=== PATIENT | male | born 1990 | race Caucasian/White ===

== ENCOUNTER 2018-06-25 19:00 | Emergency (ER) | payer BC, OTHER ==
[~2018-06-25] VITALS: Ht 182.9 cm; Wt 68.0 kg
[2018-06-25 19:06] VITALS: BP 132/84
[2018-06-25] MEDS ORDERED: DIAZEPAM 5 MG TABLET ONE (20:27)
[2018-06-25] MEDS ORDERED: KETOROLAC 30 MG/1 ML ONE (20:27)
[2018-06-25] MEDS ORDERED: DIAZEPAM 5 MG TABLET PO ONE (20:30)
[2018-06-25] MEDS ORDERED: KETOROLAC 30 MG/1 ML IM ONE (20:30)
[2018-06-25] MEDS ORDERED: PLEASE ENTER WEIGHT MC SCH (21:00)
== END 2018-06-25 21:07 | disposition home or self-care (01) ==
LOC: ED 21:01
DX: S39.012A Strain of muscle, fascia and tendon of lower back, initial encounter (principal); S50.812A Abrasion of left forearm, initial encounter; S50.811A Abrasion of right forearm, initial encounter; V43.51XA Car driver injured in collision with sport utility vehicle in traffic accident, initial encounter; Y93.89 Activity, other specified; Y92.89 Other specified places as the place of occurrence of the external cause; Y99.8 Other external cause status
CPT/HCPCS: 72110; 96372; 99283; J1885

== ENCOUNTER 2020-02-10 07:00 | Emergency (ER) | payer BC, OTHER ==
[~2020-02-10] VITALS: Ht 182.9 cm; Wt 70.5 kg
--- NOTE | 2020-02-10 07:18 | NUR ---
PT PRESENTS TO ED WITH N/V AND ABDOMINAL PAIN DURING VOMITING. NONTENDER ON PALPATION. PT REPORTS ETOH MONDAY NIGHT AND AWOKE MONDAY AM WITH VOMITING. PT DENIES OTHER MEDICAL HX. STATES UNABLE TO "KEEP ANYTHING DOWN". MOTHER AT BEDSIDE. VSS. ERPA IN TO ASSESS PT.
[2020-02-10] MEDS ORDERED: SODIUM CHLORIDE FLUSH 10ML SYR IVF ONE (07:30)
[2020-02-10] MEDS ORDERED: FAMOTIDINE 20 MG/2 ML IV ONE (07:30)
[2020-02-10] MEDS ORDERED: SODIUM CHLORIDE 0.9% 1,000ML IVBOLUS ONE (07:30)
[2020-02-10] MEDS ORDERED: ONDANSETRON 2MG/ML, 2ML IVPush ONE (07:30)
[2020-02-10] MEDS ORDERED: FAMOTIDINE 20 MG/2 ML ONE (07:31)
[2020-02-10] MEDS ORDERED: ONDANSETRON 2MG/ML, 2ML ONE (07:31)
--- NOTE | 2020-02-10 07:38 | NUR ---
IV STARTED, IVF INFUSING PER EMAR. MEDS ADMINISTERED. PT SITTING UP, USING EMESIS BAG. GIVEN FRESH ONE. DENIES FURTHER NEEDS AT THIS TIME. AWAITING RELIEF FROM MEDICATION.
[2020-02-10 08:03] LABS: BASOPHILS % (AUTO) 0 % (0-1); EOSINOPHILS % (AUTO) 0 % (1-7); LYMPHOCYTES % (AUTO) 7 % (22-44); MEAN CORPUSCULAR HEMOGLOBIN 30.7 pg (27.5-34.5); MEAN CORPUSCULAR HGB CONC 34.2 g/dL (33.2-36.2); MEAN PLATELET VOLUME 8.8 fL (7.4-10.4); MONOCYTES % (AUTO) 6 % (2-9); NEUTROPHILS % (AUTO) 86 % (42-75); PLATELET COUNT 278 x10^3/uL (130-400); RED CELL DISTRIBUTION WIDTH 13.8 % (9.4-14.8)
[2020-02-10 08:14] LABS: CHLORIDE 100 mmol/L (98-107)
--- NOTE | 2020-02-10 08:15 | NUR ---
DISCUSSION WITH DOLORES BREAUX REGARDING PT'S CONTINUED DRY HEAVING. AWAITING FURTHER ORDERS.
[2020-02-10 08:24] LABS: ALANINE AMINOTRANSFERASE 17 U/L (12-78); ALBUMIN 5.3 g/dL (3.4-5.0); ALKALINE PHOSPHATASE 64 U/L (45-117); ANION GAP 12 mmol/L (5-15); BILIRUBIN,TOTAL 1.7 mg/dL (0.2-1.0); CALCIUM 10.4 mg/dL (8.5-10.1); TOTAL PROTEIN 9.2 g/dL (6.4-8.2)
[2020-02-10] MEDS ORDERED: HALOPERIDOL 5 MG/ML IV ONE (08:30)
[2020-02-10] MEDS ORDERED: HALOPERIDOL 5 MG/ML ONE (08:32)
--- NOTE | 2020-02-10 08:39 | NUR ---
CALL TO PHARMACY REGARDING MEDICATION SCANNING ABILITY. AWAITING FURTHER INSTRUCTIONS.
--- NOTE | 2020-02-10 09:39 | NUR ---
PT GIVEN FLUIDS FOR PO CHALLENGE. PT REPORTS RELIEF FROM N/V FOLLOWING IV MED ADMINISTRATION. NAD NOTED AT THIS TIME.
[2020-02-10 09:56] LABS: MD SCAN
[2020-02-10 10:40] VITALS: BP 113/67
== END 2020-02-10 10:42 | disposition home or self-care (01) ==
LOC: ED 07:52
DX: K52.9 Noninfective gastroenteritis and colitis, unspecified (principal)
CPT/HCPCS: 36415; 80053; 83690; 85025; 96361; 96374; 96375; 99285; J1630; J2405; J7030; 99284

== ENCOUNTER 2020-07-05 06:45 | Emergency (ER) | payer OTHER ==
[~2020-07-05] VITALS: Ht 182.9 cm; Wt 77.7 kg
--- NOTE | 2020-07-05 07:10 | NUR ---
ULTRASOUND AT BEDSIDE.
[2020-07-05] MEDS ORDERED: ONDANSETRON 2MG/ML, 2ML IVPush ONE (07:30)
[2020-07-05] MEDS ORDERED: HALOPERIDOL 5 MG/ML IV ONE (07:30)
[2020-07-05] MEDS ORDERED: SODIUM CHLORIDE 0.9% 1,000ML IVBOLUS ONE (07:30)
[2020-07-05] MEDS ORDERED: FAMOTIDINE 20 MG/2 ML IVPush ONE (07:30)
[2020-07-05 07:46] LABS: BASOPHILS % (AUTO) 0 % (0-1); EOSINOPHILS % (AUTO) 0 % (1-7); LYMPHOCYTES % (AUTO) 10 % (22-44); MEAN CORPUSCULAR HEMOGLOBIN 30.4 pg (27.5-34.5); MEAN CORPUSCULAR HGB CONC 33.5 g/dL (33.2-36.2); MEAN PLATELET VOLUME 8.5 fL (7.4-10.4); MONOCYTES % (AUTO) 4 % (2-9); NEUTROPHILS % (AUTO) 86 % (42-75); PLATELET COUNT 224 x10^3/uL (130-400); RED BLOOD COUNT 4.96 x10^6/uL (4.38-5.82); RED CELL DISTRIBUTION WIDTH 13.8 % (9.4-14.8)
[2020-07-05 07:48] LABS: MD NO
[2020-07-05 07:49] LABS: ALANINE AMINOTRANSFERASE 19 U/L (12-78); ALBUMIN 4.7 g/dL (3.4-5.0); ANION GAP 8 mmol/L (5-15); CALCIUM 9.7 mg/dL (8.5-10.1); CHLORIDE 107 mmol/L (98-107)
[2020-07-05 07:51] LABS: ALKALINE PHOSPHATASE 54 U/L (45-117); TOTAL PROTEIN 7.8 g/dL (6.4-8.2)
--- NOTE | 2020-07-05 08:15 | NUR ---
task RN: assumed care of pt on behalf of primary RN for IV start only. IV initiated per order and fluid bouls started. pt resting in position of comfort. no vomiting at this time
[2020-07-05] MEDS ORDERED: ONDANSETRON 2MG/ML, 2ML ONE (08:23)
[2020-07-05] MEDS ORDERED: FAMOTIDINE 20 MG/2 ML ONE (08:23)
[2020-07-05] MEDS ORDERED: HALOPERIDOL 5 MG/ML ONE (08:23)
--- NOTE | 2020-07-05 08:36 | NUR ---
PT STATES HE STARTED VOMITING LAST NIGHT WITH ABDOMINIAL PAIN AFTER HAVING THREE SHOTS. STATES HE HAS VOMITED 30 TIMES. PT HAS VOMITED ONCE SINCE ARRIVAL. PT MEDICATED NOTED ON MAR PER ORDERS AND FLUIDS INFUSING
[2020-07-05] MEDS ORDERED: MAALOX/HYOSCYAMINE/LIDOCAINE 45 ML BTL PO ONE (09:00)
[2020-07-05] MEDS ORDERED: MAALOX/HYOSCYAMINE/LIDOCAINE 45 ML BTL ONE (09:36)
[2020-07-05 09:38] VITALS: BP 123/63
--- NOTE | 2020-07-05 10:08 | NUR ---
IMPROVEMENT IN PAIN SINCE MEDICATED. TO BE DISCHARGED.
== END 2020-07-05 10:12 | disposition home or self-care (01) ==
LOC: ED 07:11
DX: K29.20 Alcoholic gastritis without bleeding (principal); K85.20 Alcohol induced acute pancreatitis without necrosis or infection; F10.10 Alcohol abuse, uncomplicated; R11.2 Nausea with vomiting, unspecified; R10.13 Epigastric pain; Y90.0 Blood alcohol level of less than 20 mg/100 ml
CPT/HCPCS: 36415; 76700; 80053; 83690; 85025; 96361; 96374; 96375; 99284; J1630; J2405; J7030

== ENCOUNTER 2020-10-11 08:45 | Emergency (ER) | payer OTHER ==
[~2020-10-11] VITALS: Ht 182.9 cm; Wt 80.9 kg
[2020-10-11] MEDS ORDERED: FAMOTIDINE 20 MG/2 ML IVPush ONE (09:30)
[2020-10-11] MEDS ORDERED: ONDANSETRON 2MG/ML, 2ML IVPush ONE (09:30)
[2020-10-11] MEDS ORDERED: SODIUM CHLORIDE 0.9% 1,000ML IVBOLUS ONE (09:30)
[2020-10-11] MEDS ORDERED: SODIUM CHLORIDE FLUSH 10ML SYR IVF ONE (09:30)
[2020-10-11] MEDS ORDERED: FAMOTIDINE 20 MG/2 ML ONE (09:38)
[2020-10-11] MEDS ORDERED: ONDANSETRON 2MG/ML, 2ML ONE (09:38)
[2020-10-11 10:13] LABS: ALANINE AMINOTRANSFERASE 21 U/L (12-78); ALBUMIN 5.3 g/dL (3.4-5.0); ANION GAP 10 mmol/L (5-15); CALCIUM 10.3 mg/dL (8.5-10.1); CHLORIDE 107 mmol/L (98-107); CREATININE 0.92 mg/dL (0.7-1.3)
[2020-10-11 10:16] LABS: ALKALINE PHOSPHATASE 62 U/L (45-117); BILIRUBIN,TOTAL 1.3 mg/dL (0.2-1.0); TOTAL PROTEIN 8.8 g/dL (6.4-8.2)
[2020-10-11 10:21] LABS: BASOPHILS % (AUTO) 0 % (0-1); EOSINOPHILS % (AUTO) 0 % (1-7); LYMPHOCYTES % (AUTO) 8 % (22-44); MEAN CORPUSCULAR HEMOGLOBIN 30.5 pg (27.5-34.5); MEAN CORPUSCULAR HGB CONC 33.7 g/dL (33.2-36.2); MEAN PLATELET VOLUME 8.7 fL (7.4-10.4); MONOCYTES % (AUTO) 3 % (2-9); NEUTROPHILS % (AUTO) 88 % (42-75); PLATELET COUNT 224 x10^3/uL (130-400); RED BLOOD COUNT 5.57 x10^6/uL (4.38-5.82); RED CELL DISTRIBUTION WIDTH 13.6 % (9.4-14.8)
[2020-10-11 11:04] LABS: CLOSTRIDIUM DIFFICILE ANTIGEN NEGATIVE; CLOSTRIDIUM DIFFICILE TOXIN NEGATIVE (Negative)
[2020-10-11] MEDS ORDERED: PROMETHAZINE 25 MG/ML, 1ML ONE (11:11)
[2020-10-11] MEDS ORDERED: PROMETHAZINE 25 MG/ML, 1ML IM ONE (11:30)
[2020-10-11 12:28] VITALS: BP 121/68
== END 2020-10-11 14:08 | disposition home or self-care (01) ==
LOC: ED 10:33
DX: K52.9 Noninfective gastroenteritis and colitis, unspecified (principal); R11.2 Nausea with vomiting, unspecified
CPT/HCPCS: 36415; 80053; 83690; 85025; 87324; 89055; 96361; 96372; 96374; 96375; 99284; J2405; J2550; J7030

== ENCOUNTER 2020-10-12 19:37 | Emergency (ER) | payer OTHER | END 2020-10-12 19:48 | LOC: ED 19:45 | DX: R10.9 Unspecified abdominal pain (principal); R19.7 Diarrhea, unspecified; R11.10 Vomiting, unspecified; Z53.21 Procedure and treatment not carried out due to patient leaving prior to being seen by health care provider ==

== ENCOUNTER 2020-10-14 04:29 | Emergency (ER) | payer OTHER ==
[~2020-10-14] VITALS: Ht 182.9 cm; Wt 80.9 kg
--- NOTE | 2020-10-14 04:38 | NUR ---
INITIAL PT CONTACT. PT PRESENTS TO ED C/O DIFFUSE ABDOMINAL PAIN X3 DAYS, PT SEEN FOR SAME 3 DAYS AGO, ALSO C/O DIARRHEA, PT DENIES ANY NAUSEA OR VOMITING CURRENTLY. "I JUST FEEL BLOATED." PT STATES PAIN FEELS LIKE GAS PAINS AND WHEN HE BURPS HE GETS SOME RELIEF FROM PAIN. PT SITTING UPRIGHT ON GURNEY, NADN, VSS. CALL LIGHT AND PERSONAL BELONGINGS WITHIN REACH. AWAITING ERP.
[2020-10-14] MEDS ORDERED: ONDANSETRON 2MG/ML, 2ML IVPush ONE (05:00)
[2020-10-14] MEDS ORDERED: SODIUM CHLORIDE 0.9% 1,000ML IVBOLUS ONE (05:00)
[2020-10-14] MEDS ORDERED: ONDANSETRON 2MG/ML, 2ML ONE (05:01)
[2020-10-14 05:18] LABS: BASOPHILS % (AUTO) 0 % (0-1); EOSINOPHILS % (AUTO) 0 % (1-7); LYMPHOCYTES % (AUTO) 18 % (22-44); MEAN CORPUSCULAR HGB CONC 34.7 g/dL (33.2-36.2); MONOCYTES % (AUTO) 8 % (2-9); NEUTROPHILS % (AUTO) 75 % (42-75); PLATELET COUNT 209 x10^3/uL (130-400); RED BLOOD COUNT 5.31 x10^6/uL (4.38-5.82); RED CELL DISTRIBUTION WIDTH 13.7 % (9.4-14.8)
[2020-10-14] MEDS ORDERED: HALOPERIDOL 5 MG/ML ONE ×2 (05:26→05:55)
[2020-10-14 05:29] LABS: ALANINE AMINOTRANSFERASE 21 U/L (12-78); ALBUMIN 4.4 g/dL (3.4-5.0); ANION GAP 12 mmol/L (5-15); CALCIUM 9.7 mg/dL (8.5-10.1); CHLORIDE 106 mmol/L (98-107); CREATININE 0.86 mg/dL (0.7-1.3)
[2020-10-14] MEDS ORDERED: HALOPERIDOL 5 MG/ML IV ONE ×2 (05:30→06:00)
[2020-10-14 05:32] LABS: ALKALINE PHOSPHATASE 51 U/L (45-117); BILIRUBIN,TOTAL 1.8 mg/dL (0.2-1.0); TOTAL PROTEIN 7.9 g/dL (6.4-8.2)
[2020-10-14] MEDS ORDERED: PANTOPRAZOLE 40 MG IV ONE (05:55)
[2020-10-14] MEDS ORDERED: PANTOPRAZOLE 40 MG IV IVPush ONE (06:00)
[2020-10-14] MEDS ORDERED: POTASSIUM CHLORIDE 40 MEQ in LACTATED RINGERS 1,000 ML IV SCH (06:00)
--- NOTE | 2020-10-14 06:25 | NUR ---
PT SITTING UPRIGHT ON GURNEY ABLE TO DOZE OFF. STATES HE "FEELS A LITTLE BETTER, BUT I STILL HAVE SOME PAIN." ROOM AIR O2 NOTED TO BE 88%, PLACED ON 2L 02 VIA NASAL CANNULA. O2 SAT NOTED TO BE 96%. NO OTHER NEEDS AT THIS TIME. CALL LIGHT AND PERSONAL BELONGINGS WITHIN REACH. MOTHER AT BEDSIDE.
--- NOTE | 2020-10-14 06:50 | NUR ---
REPORT FROM DAWIT GUERRA WITH ASSESSMENT-PATIENT REPORTS FULL RESOLUTION IN NAUSEA/PAIN. ASKING FOR PO FLUIDS POC REVIEWED WITH ERP WITH FOCUS ON PO CHALLENGE, THEN PO POTASSIUM. THEN D/C ERP WOULD LIKE TO KEEP NPO, REPLETE K WITH IVF (TOTAL OF 2L) PATIENT AGREEABLE WITH FURTHER ASSESSMENT SXS MORE THAN LYUDMILA D/T THC...PATIENT EDUCATED
--- NOTE | 2020-10-14 06:57 | NUR ---
REPORT GIVEN TO W[place] GUERRA
[2020-10-14 09:12] VITALS: BP 138/77
[2020-10-14] MEDS ORDERED: DIPHENHYDRAMINE 50 MG/ML, 1ML ONE (09:22)
[2020-10-14] MEDS ORDERED: DIPHENHYDRAMINE 50 MG/ML, 1ML IVPush ONE (09:30)
[2020-10-17] MEDS ORDERED: SUCR1TAB33 PO (09:48)
== END 2020-10-14 10:18 | disposition home or self-care (01) ==
LOC: ED 04:45
DX: R10.84 Generalized abdominal pain (principal); R11.2 Nausea with vomiting, unspecified; E87.6 Hypokalemia
CPT/HCPCS: 36415; 80053; 83690; 85025; 93005; 96361; 96365; 96366; 96375; 96376; 99284; C9113; J1200; J1630; J2405; J3480; J7030; J7120

== ENCOUNTER 2020-10-16 04:55 | Observation (INO) | payer OTHER ==
[~2020-10-16] VITALS: Ht 182.9 cm; Wt 79.3 kg
--- NOTE | 2020-10-16 05:15 | NUR ---
PT AMBULATED TO ROOM 19. PT REPORTS HAVING TRAPPED GAS CAUSING ABDMOINAL CRAMPS AND CHEST PRESSURE. PT REPORTS "I'M BURING UP ACID AND I'M UNABLE TO GET ANY RELIEF"
[2020-10-16] MEDS ORDERED: SODIUM CHLORIDE FLUSH 10ML SYR IVF ONE (05:30)
[2020-10-16] MEDS ORDERED: PANTOPRAZOLE 40 MG IV ONE (05:30)
[2020-10-16] MEDS ORDERED: SODIUM CHLORIDE 0.9% 1,000ML IVBOLUS ONE (05:30)
[2020-10-16] MEDS ORDERED: PANTOPRAZOLE 40 MG IV IVPush ONE (05:30)
[2020-10-16] MEDS ORDERED: ONDANSETRON 2MG/ML, 2ML ONE (06:07)
[2020-10-16] MEDS ORDERED: ONDANSETRON 2MG/ML, 2ML IVPush ONE (06:30)
[2020-10-16 06:40] LABS: ALBUMIN 4.5 g/dL (3.4-5.0); ANION GAP 12 mmol/L (5-15); CALCIUM 9.7 mg/dL (8.5-10.1); CHLORIDE 105 mmol/L (98-107); CREATININE 0.77 mg/dL (0.7-1.3)
[2020-10-16] MEDS ORDERED: KETOROLAC 30 MG/1 ML ONE (06:44)
--- NOTE | 2020-10-16 06:44 | NUR ---
CARE TRANSFERED. REPORT GIVEN TO CHARLIE WILSON
--- NOTE | 2020-10-16 06:50 | NUR ---
First contact with patient, sitting up c/o abd pain. Admin med per mar, no active n/v. IVF complete, vss. AIDET provided.
[2020-10-16] MEDS ORDERED: KETOROLAC 30 MG/1 ML IVPush ONE (07:00)
--- NOTE | 2020-10-16 07:29 | NUR ---
Pt sleeping, RR equal and unlabored, reports decrease in pain since toradol. VSS, mother at bedside. Updated on POC/AIDET.
--- NOTE | 2020-10-16 09:00 | NUR ---
RECEIVED REPORT FROM CHARLIE WILSON. PT RESTING ON GURNEY. ROJAS. VSS. STATES HE FEELS IMPROVED AT THIS TIME.
--- NOTE | 2020-10-16 09:05 | NUR ---
Report to huy wiggins
--- NOTE | 2020-10-16 09:07 | NUR ---
YELLOW SLIP SENT TO PHARMACY FOR MEDS PER APR.
[2020-10-16] MEDS: POTASSIUM CHLORIDE 40 MEQ in LACTATED RINGERS 1,000 ML IV SCH ×2 (09:29→16:11)
--- NOTE | 2020-10-16 10:00 | NUR ---
PT RESTING ON GURNEY. NADN. [place].
--- NOTE | 2020-10-16 10:18 | NUR ---
ERP DR. RODRIGUEZ AT BEDSIDE FOR RE-EVAL.
--- NOTE | 2020-10-16 10:37 | NUR ---
REPORT GIVEN TO KAMAR STANFORD RN. ALL QUESTIONS ANSWERED. AWAITING PT TRANSPORT.
[2020-10-16 11:13] LABS: HCT (SEDRATE) 43.1 % (39.2-51.8)
[2020-10-16 11:31] LABS: ALANINE AMINOTRANSFERASE 19 U/L (12-78); ALKALINE PHOSPHATASE 46 U/L (45-117); ANION GAP 13 mmol/L (5-15); BILIRUBIN,TOTAL 1.9 mg/dL (0.2-1.0); CHLORIDE 106 mmol/L (98-107)
[2020-10-16 11:32] LABS: ALBUMIN 4.2 g/dL (3.4-5.0); C-REACTIVE PROTEIN, QUANT 0.13 mg/dL (0.02-0.49); TOTAL PROTEIN 6.9 g/dL (6.4-8.2)
[2020-10-16] MEDS ORDERED: CHLORHEXIDINE 15 ML UDC ONE (12:22)
[2020-10-16] MEDS ORDERED: PROPOFOL 10 MG/ML, 20ML ONE (12:36)
[2020-10-16] MEDS ORDERED: OMEPRAZOLE 10 MG CAPSULE.DR PO SCH (13:00)
[2020-10-16 13:40] VITALS: BP 146/91
[2020-10-16] MEDS ORDERED: SUCR1ORA5 PO ×2 (15:46)
[2020-10-16] MEDS ORDERED: METO10TA82 PO (15:46)
[2020-10-16] MEDS ORDERED: OMEP10CA5 PO (15:46)
[2020-10-16 17:26] VITALS: BP 136/77
[2020-10-16] MEDS ORDERED: NORTRIPTYLINE 25 MG CAPSULE PO SCH (21:00)
[2020-10-17] MEDS ORDERED: SUCR1TAB33 PO (09:48)
== END 2020-10-16 17:46 | disposition home or self-care (01) ==
LOC: ED 05:36 → INTOOBSV 10:19 → EDIP 10:19 → 4NE 11:04
PROVIDERS: ADMIT Family Medicine; ATTEND Family Medicine
DX: R11.2 Nausea with vomiting, unspecified (principal); Z20.822 Contact with and (suspected) exposure to COVID-19; F12.188 Cannabis abuse with other cannabis-induced disorder; E87.6 Hypokalemia; K21.00 Gastro-esophageal reflux disease with esophagitis, without bleeding; K29.70 Gastritis, unspecified, without bleeding; R10.13 Epigastric pain; R19.7 Diarrhea, unspecified; R74.8 Abnormal levels of other serum enzymes; Z79.899 Other long term (current) drug therapy
CPT/HCPCS: 36415; 43239; 80048; 80053; 82040; 83631; 83993; 85651; 86140; 87635; 88305; 93005; 96361; 96365; 96366; 96375; 99284; C9113; G0378; J1885; J2405; J2704; J3480; J7030; J7120; 96374; 99285

== ENCOUNTER 2020-10-19 03:42 | Emergency (ER) | payer OTHER ==
[~2020-10-19] VITALS: Ht 182.9 cm; Wt 77.0 kg
[~2020-10-19 03:42] MED LIST: METO10TA82 PO; OMEP10CA5 PO; SUCR1ORA5 PO; SUCR1TAB33 PO
--- NOTE | 2020-10-19 03:55 | NUR ---
EKG DONE IN TRIAGE.
--- NOTE | 2020-10-19 04:53 | NUR ---
Pt arrived with c/o CP, SOB, n/v that started at 2am. Pt was previously dx with hyper emesis and threw up in the night, pt reports going back to bed and suddenly awoke with burning in his chest and stomach. PT also states that meds given for hyperemesis stopped working today. EKG completed in triage, NADN, VSS, WCTM
[2020-10-19] MEDS ORDERED: ONDANSETRON 2MG/ML, 2ML ONE (05:43)
[2020-10-19] MEDS ORDERED: FAMOTIDINE 20 MG/2 ML ONE (05:44)
[2020-10-19] MEDS ORDERED: FAMOTIDINE 20 MG/2 ML IVPush ONE (06:00)
[2020-10-19] MEDS ORDERED: SODIUM CHLORIDE FLUSH 10ML SYR IVF ONE (06:00)
[2020-10-19] MEDS ORDERED: SODIUM CHLORIDE 0.9% 1,000 ML IV ONE (06:00)
[2020-10-19] MEDS ORDERED: SODIUM CHLORIDE 0.9% 1,000ML IVBOLUS ONE (06:00)
[2020-10-19] MEDS ORDERED: ONDANSETRON 2MG/ML, 2ML IVPush ONE (06:00)
[2020-10-19 06:05] LABS: BASOPHILS % (AUTO) 0 % (0-1); EOSINOPHILS % (AUTO) 0 % (1-7); LYMPHOCYTES % (AUTO) 21 % (22-44); MEAN CORPUSCULAR HEMOGLOBIN 31.3 pg (27.5-34.5); MEAN CORPUSCULAR HGB CONC 35.4 g/dL (33.2-36.2); MEAN PLATELET VOLUME 8.2 fL (7.4-10.4); MONOCYTES % (AUTO) 9 % (2-9); NEUTROPHILS % (AUTO) 69 % (42-75); PLATELET COUNT 258 x10^3/uL (130-400); RED BLOOD COUNT 5.06 x10^6/uL (4.38-5.82); RED CELL DISTRIBUTION WIDTH 13.5 % (9.4-14.8)
[2020-10-19 06:16] LABS: ALANINE AMINOTRANSFERASE 28 U/L (12-78); ALBUMIN 4.5 g/dL (3.4-5.0); ANION GAP 18 mmol/L (5-15); CALCIUM 9.8 mg/dL (8.5-10.1); CHLORIDE 99 mmol/L (98-107); CREATININE 0.81 mg/dL (0.7-1.3)
[2020-10-19 06:21] LABS: ALKALINE PHOSPHATASE 44 U/L (45-117); BILIRUBIN,TOTAL 1.5 mg/dL (0.2-1.0); TOTAL PROTEIN 7.6 g/dL (6.4-8.2); TROPONIN I < 0.015 ng/mL (0.000-0.045)
[2020-10-19 07:00] VITALS: BP 161/96
--- NOTE | 2020-10-19 07:00 | NUR ---
REPORT FROM CHARLIE IRVING. PT RESTING IN [facility], MONITORING IN PLACE, MOM AT BEDSIDE, CASEY ROJAS.
== END 2020-10-19 08:17 | disposition home or self-care (01) ==
LOC: ED 05:03
DX: K29.00 Acute gastritis without bleeding (principal); E86.0 Dehydration; R11.2 Nausea with vomiting, unspecified; E87.6 Hypokalemia; R06.02 Shortness of breath
CPT/HCPCS: 36415; 71045; 80053; 83690; 84484; 85025; 93005; 96361; 96374; 96375; 99285; J2405; J7030